=== PATIENT | male | born 1980 | race African-American/Black ===

== ENCOUNTER 2016-05-23 15:15 | Emergency (ER) | payer SELFPAY ==
[~2016-05-23] VITALS: Ht 185.4 cm; Wt 71.3 kg
[2016-05-23 15:18] VITALS: BP 160/116; PULSE 75; RESP 18; TEMP 99.3; O2SAT 99
[2016-05-23] MEDS ORDERED: SODIUM CHLOR 0.9% 1000 ML INJ 1,000 ML IV SCH (16:07)
--- NOTE | 2016-05-23 16:12 | PD ---
HPI Chief Complaint: GI Complaint Time Seen by Provider: 16:02 Travel History International Travel<30 days: No Contact w/Intl Traveler<30days: No Traveled to known affect area: No History of Present Illness HPI She is a 35-year-old male who presents to emergency room with complaints of nausea and vomiting for the past few days. Patient reports that he has been doing to stay hydrated, reports that he has not been able to eat or drink anything since . Patient reports no sick contacts. Patient reports no abdominal pain. Patient reports nausea and vomiting. Patient denies constipation or diarrhea. Patient with no chest pain or shortness of breath. Patient with no other complaints. Patient denies any recent travels or trips. Patient denies eating anything which would've caused these symptoms. [facility] Family History Family History: Negative Social History Alcohol Use: Yes Tobacco Use: Yes Substance Use: Yes (MARIJUANA) Allergies-Medications (Allergen,Severity, Reaction): Coded Allergies: No Known Allergies (Unverified , 05/23/16) Reported Meds & Prescriptions Reported Meds & Active Scripts Active Macrobid (Nitrofurantoin Monoh/Nitrofur Macro) 100 Mg Cap 100 Mg PO BID 10 Days Bentyl (Dicyclomine HCl) 20 Mg Tab 20 Mg PO TID 10 Days Zofran Odt (Ondansetron Odt) 4 Mg Tab 4 Mg SL Q6HR PRN Review of Systems General / Constitutional: No: Fever Eyes: No: Visual changes HENT: No: Headaches Cardiovascular: No: Chest Pain or Discomfort Respiratory: No: Shortness of Breath Gastrointestinal: Positive: Nausea, Vomiting, No: Diarrhea, Abdominal Pain, Constipation Genitourinary: No: Dysuria Musculoskeletal: No: Pain Skin: No Rash Neurologic: No: Weakness Psychiatric: No: Depression Endocrine: No: Polydipsia Hematologic/Lymphatic: No: Easy Bruising Physical Exam Narrative GENERAL: No acute distress, nontoxic SKIN: Warm and dry. HEAD: Atraumatic. Normocephalic. EYES: Pupils equal and round. No scleral icterus. No injection or drainage. ENT: No nasal bleeding or discharge. Mucous membranes pink and tacky. NECK: Trachea midline. No JVD. CARDIOVASCULAR: Regular rate and rhythm. No murmur appreciated. RESPIRATORY: No accessory muscle use. Clear to auscultation. Breath sounds equal bilaterally. GASTROINTESTINAL: Abdomen soft, non-tender, nondistended. Hepatic and splenic margins not palpable. MUSCULOSKELETAL: No obvious deformities. No clubbing. No cyanosis. No edema. NEUROLOGICAL: Awake and alert. No obvious cranial nerve deficits. Motor grossly within normal limits. Normal speech. PSYCHIATRIC: Appropriate mood and affect; insight and judgment normal. Data Data Last Documented VS Orders Complete Blood Count With Diff (05/23/16 16:07) Comprehensive Metabolic Panel (05/23/16 16:07) Lipase (05/23/16 16:07) Urinalysis - C+S If Indicated (05/23/16 16:07) Iv Access Insert/Monitor (05/23/16 16:07) Ondansetron Inj (Zofran Inj) (05/23/16 16:15) Sodium Chlor 0.9% 1000 Ml Inj (Ns 1000 M (05/23/16 16:07) Sodium Chloride 0.9% Flush (Ns Flush) (05/23/16 16:15) Famotidine Inj (Pepcid Inj) (05/23/16 16:15) Dicyclomine (Bentyl) (05/23/16 16:15) Sodium Chlor 0.9% 1000 Ml Inj (Ns 1000 M (05/23/16 16:15) Ct Abd/Pel W Iv Contrast(Rout) (05/23/16 17:09) Urine Culture (05/23/16 17:10) Iohexol 350 Inj (Omnipaque 350 Inj) (05/23/16 17:48) Ceftriaxone Inj (Rocephin Inj) (05/23/16 18:45) Gc And Chlamydia Pcr (05/23/16 18:41) Labs MDM Medical Decision Making Medical Screen Exam Complete: Yes Emergency Medical Condition: Yes Interpretation(s) Vital Signs Date Time Temp Pulse Resp B/P Pulse Ox O2 Delivery O2 Flow Rate FiO2 05/23/16 15:18 99.3 75 18 160/116 99 Differential Diagnosis Gastroenteritis, gastritis, electrolyte abnormality, ulcer Narrative Course Patient is a 35-year-old male who presents to emergency room with complaints of nausea and vomiting for the past few days. Patient reports that he has been symptomatic and has not been able to keep any fluids down since . Patient with no fevers or chills. Patient denies constipation or diarrhea. Patient reports that he just feels very dehydrated. Patient nontoxic on evaluation, patient does appear dehydrated. Plan to place IV, will give IV fluids, Bentyl and Zofran. Will check CBC, BMP, LFTs and perform serial abdominal evaluations. Patient was reevaluated, patient reports he started feeling mildly better. WBC 18.7 Hemoglobin 16.1 Hematocrit 48 Platelets 251 Neutrophil percent 75.1 Sodium 140 Potassium 3.6 Carbon dioxide 23.9 BUN 14 Creatinine 1.10 Lipase 626 Patient reports that he is feeling mildly better, reviewed concerning labs with patient as well as concerning lipase. Patient reports that he only drinks alcohol on occasion, does not drink alcohol every single day. Patient with no history of pancreatitis in the past. Plan to obtain CT of the abdomen for further evaluation of pancreas UA: pos for trace blood and few wbc, will treat for uti urine g/c sent ct abd/pelvis: neg for acute pathology, liver, spleen and pancreas and adrenals are unremarkable Patient was given a copy of his CAT scan reports for follow-up Signs and symptoms of when to return to the emergency room reviewed with patient and his in detail. Patient will follow up with cultures from today. Abdomen is soft, nontender, nondistended, no peritoneal signs on discharge. Diagnosis Primary Impression: Pancreatitis Qualified Code: K85.90 - Acute pancreatitis without infection or necrosis, unspecified pancreatitis type Additional Impressions: Nausea & vomiting Qualified Code: R11.2 - Nausea and vomiting, intractability of vomiting not specified, unspecified vomiting type Leukocytosis Qualified Code: D72.829 - Leukocytosis, unspecified type UTI (urinary tract infection) Qualified Code: N30.01 - Acute cystitis with hematuria Patient Instructions: General Instructions Additional Instructions: Please follow-up with all cultures from today Please follow-up with your primary care doctor as soon as possible Return to ER as needed Please bring her CAT scan report to doctor's office for follow-up on studies from today. Please make that he drink plenty of fluids Med/Other Pt SpecificInfo: Prescription(s) given Scripts Nitrofurantoin Monohydrate Macrocrystals (Macrobid)100 Mg [id number] Mg PO BID 10 Days Ref 0 Prov:Nona Amezcua DO 05/23/16 Dicyclomine (Bentyl)20 Mg Tab20 Mg PO TID 10 Days Ref 0 Prov:Nona Amezcua DO 05/23/16 Ondansetron Odt (Zofran Odt)4 Mg Tab4 Mg SL Q6HR PRN (Nausea/Vomiting) #30 TAB Ref 0 Prov:Nona Amezcua DO 05/23/16 Disposition: 01 DISCHARGE HOME Condition: Stable Nona Amezcua DO May 23, 2016 16:12 Urine Specific [place] 1.034 Urine Protein 100 mg/dL Urine Glucose (UA) NEG mg/dL Urine Ketones 40 mg/dL Urine Occult Blood TRACE Urine Nitrite NEG Urine Bilirubin NEG Urine Leukocyte Esterase NEG Urine RBC 0-3 /hpf Urine WBC 9-14 /hpf Urine WBC Clumps FEW Urine Squamous Epithelial > 8 /hpf Cells Urine Amorphous Sediment MOD Microscopic Urinalysis Comment CULTURE INDICATED Urine Collection Time [facility] [facility] Medical Decision Making Medical Screen Exam Complete: Yes Interpretation(s) Vital Signs Date Time Temp Pulse Resp B/P Pulse Ox O2 Delivery O2 Flow Rate FiO2 05/23/16 15:18 99.3 75 18 160/116 99 Differential Diagnosis Gastroenteritis, gastritis, electrolyte abnormality, ulcer Narrative Course Patient is a 35-year-old male who presents to emergency room with complaints of nausea and vomiting for the past few days. Patient reports that he has been symptomatic and has not been able to keep any fluids down since . Patient with no fevers or chills. Patient denies constipation or diarrhea. Patient reports that he just feels very dehydrated. Patient nontoxic on evaluation, patient does appear dehydrated. Plan to place IV, will give IV fluids, Bentyl and Zofran. Will check CBC, BMP, LFTs and perform serial abdominal evaluations. Patient was reevaluated, patient reports he started feeling mildly better. WBC 18.7 Hemoglobin 16.1 Hematocrit 48 Platelets 251 Neutrophil percent 75.1 Sodium 140 Potassium 3.6 Carbon dioxide 23.9 BUN 14 Creatinine 1.10 Lipase 626 Patient reports that he is feeling mildly better, reviewed concerning labs with patient as well as concerning lipase. Patient reports that he only drinks alcohol on occasion, does not drink alcohol every single day. Patient with no history of pancreatitis in the past. Plan to obtain CT of the abdomen for further evaluation of pancreas UA: pos for trace blood and few wbc, will treat for uti urine g/c sent ct abd/pelvis: neg for acute pathology, liver, spleen and pancreas and adrenals are unremarkable Patient was given a copy of his CAT scan reports for follow-up Signs and symptoms of when to return to the emergency room reviewed with patient and his in detail. Patient will follow up with cultures from today. Abdomen is soft, nontender, nondistended, no peritoneal signs on discharge. Diagnosis Primary Impression: Pancreatitis Qualified Code: K85.90 - Acute pancreatitis without infection or necrosis, unspecified pancreatitis type Additional Impressions: Nausea & vomiting Qualified Code: R11.2 - Nausea and vomiting, intractability of vomiting not specified, unspecified vomiting type Leukocytosis Qualified Code: D72.829 - Leukocytosis, unspecified type UTI (urinary tract infection) Qualified Code: N30.01 - Acute cystitis with hematuria Patient Instructions: General Instructions Additional Instructions: Please follow-up with all cultures from today Please follow-up with your primary care doctor as soon as possible Return to ER as needed Please bring her CAT scan report to doctor's office for follow-up on studies from today. Please make that he drink plenty of fluids Med/Other Pt SpecificInfo: Prescription(s) given Scripts Nitrofurantoin Monohydrate Macrocrystals (Macrobid)100 Mg [id number] Mg PO BID 10 Days Ref 0 Prov:Nona Amezcua DO 05/23/16 Dicyclomine (Bentyl)20 Mg Tab20 Mg PO TID 10 Days Ref 0 Prov:Nona Amezcua DO 05/23/16 Ondansetron Odt (Zofran Odt)4 Mg Tab4 Mg SL Q6HR PRN (Nausea/Vomiting) #30 TAB Ref 0 Prov:Nona Amezcua DO 05/23/16 Disposition: 01 DISCHARGE HOME Condition: Stable Nona Amezcua DO May 23, 2016 16:12
[2016-05-23] MEDS ORDERED: FAMOTIDINE 20 MG/2 ML VIAL IV PUSH ONE (16:15)
[2016-05-23] MEDS ORDERED: DICYCLOMINE HCL 10 MG CAP PO ONE (16:15)
[2016-05-23] MEDS ORDERED: ONDANSETRON HCL 4 MG/2 ML VIAL IVP ONE (16:15)
[2016-05-23] MEDS ORDERED: SODIUM CHLOR 0.9% 1000 ML INJ 1,000 ML IV ONE (16:15)
[2016-05-23] MEDS ORDERED: SODIUM CHLORIDE 0.9% FLUSH 5 ML FLUSH IVF PRN (16:15)
[2016-05-23 16:23] LABS: AUTOMATED NEUTROPHIL # 14.1 TH/MM3 (1.8-7.7); BASOPHIL # 0.5 TH/MM3 (0-0.2); BASOPHIL % 2.6 % (0.0-2.0); EOSINOPHIL % 0.1 % (0.0-4.0); HEMO FLAGS AUTO DIFF; LYMPH % 10.2 % (9.0-44.0); LYMPHOCYTE # 1.9 TH/MM3 (1.0-4.8); MEAN CELL VOLUME 82.1 FL (80.0-100.0); MEAN CORPUSCULAR HEMOGLOBIN 27.5 PG (27.0-34.0); MEAN CORPUSCULAR HGB CONC 33.5 % (32.0-36.0); NEUT % 75.1 % (16.0-70.0); PLATELET COUNT 251 TH/MM3 (150-450); RED BLOOD COUNT 5.84 MIL/MM3 (4.50-5.90); RED CELL DISTRIBUTION WIDTH 13.2 % (11.6-17.2); WHITE BLOOD COUNT 18.7 TH/MM3 (4.0-11.0)
[2016-05-23 16:24] VITALS: BP 167/111; PULSE 66; RESP 20; O2SAT 99
[2016-05-23 16:30] LABS: CHLORIDE 104 MEQ/L (98-107); POTASSIUM 3.6 MEQ/L (3.5-5.1); SODIUM (NA) 140 MEQ/L (136-145)
[2016-05-23 16:34] LABS: ANION GAP 12 MEQ/L (5-15); BICARBONATE 23.9 MEQ/L (21.0-32.0); BLOOD UREA NITROGEN 14 MG/DL (7-18)
[2016-05-23 16:37] LABS: ALT (GPT) 16 U/L (12-78); AST (GOT) 22 U/L (15-37); GLOMERULAR FILTRATION RATE 92 ML/MIN (>89)
[2016-05-23 16:39] LABS: TOTAL BILIRUBIN ADULT 0.3 MG/DL (0.2-1.0)
[2016-05-23 16:40] LABS: ALKALINE PHOSPHATASE 49 U/L (45-117)
[2016-05-23 16:47] LABS: SCAN/DIFF AUTO DIFF CONFIRMED
[2016-05-23 17:13] VITALS: BP 155/107; PULSE 86; RESP 18; O2SAT 97
[2016-05-23 17:23] LABS: BLOOD, URINE TRACE (NEG); GLUCOSE,URINE NEG (NEG); KETONE, URINE 40 mg/dL (NEG); NITRITE,URINE NEG (NEG)
[2016-05-23 17:32] LABS: METHOD OF COLLECTION CLEAN CATCH; URINE COLOR YELLOW (YELLW/STRAW)
[2016-05-23 17:33] LABS: RBC, URINE 0-3 /hpf (0-3)
[2016-05-23 17:34] LABS: COMMENT (UR) CULTURE INDICATED; COMMENT2 (UR) MUCOUS PRESENT; CULTURE IF INDICATED CULTURE INDICATED; SQUAMOUS EPITHELIAL CELL URINE > 8 /hpf (0-5)
[2016-05-23] MEDS ORDERED: IOHEXOL 350 MG/ML 10 ML VIAL (for RAD DIAG) IV ONE (17:48)
[2016-05-23 18:21] VITALS: BP 143/99; PULSE 89; RESP 18; O2SAT 98
--- NOTE | 2016-05-23 18:23 | RADHPO ---
EXAM DATE/TIME: 05/23/2016 17:40 [facility] COMPARISON: No previous studies available for comparison. INDICATIONS : Nausea and vomiting for three days. IV CONTRAST: 70 cc Omnipaque 350 (iohexol) IV ORAL CONTRAST: No oral contrast ingested. RADIATION DOSE: 6.26 CTDIvol (mGy) MEDICAL HISTORY : None SURGICAL HISTORY : None. ENCOUNTER: Initial ACUITY: 3 days PAIN SCALE: 3/10 LOCATION: Bilateral lower quadrant TECHNIQUE: Volumetric scanning of the abdomen and pelvis was performed. Using automated exposure control and ad justment of the mA and/or kV according to patient size, radiation dose was kept as low as reasonably achievable to obtain optimal diagnostic quality images. FINDINGS: Lung bases are clear. Liver, spleen, pancreas and adrenal glands are unremarkable. Gallbladder appe ars normal. Region of the cecum and terminal ileum are unremarkable. In the pelvis, there is no ascites or adenopathy. Abdominal wall is intact. Review of bone windows reveals only degenerative changes. CONCLUSION: Negative CT scan abdomen and pelvis. I do not see an etiology for the patient's abdominal pain, naus ea and vomiting. Juvenal Baker MD FACR on May 23, 2016 at 18:07 Board Certified Radiologist. This report was verified electronically.
[2016-05-23] MEDS ORDERED: BENT20TA PO (18:39)
[2016-05-23] MEDS ORDERED: ZOFR4TAB3 SL (18:39)
[2016-05-23] MEDS ORDERED: MACR100C2 PO (18:42)
[2016-05-23] MEDS ORDERED: cefTRIAXone INJ 1,000 MG in SODIUM CHLORIDE 0.9% INJ 100 ML IV ONE (18:45)
[2016-05-23 23:55] LABS: CHLAMYDIA PCR NOT DETECTED (NOT DETECT); NEISSERIA PCR NOT DETECTED (NOT DETECT)
== END 2016-05-23 19:54 | disposition home or self-care (01) ==
LOC: PHED 15:15
DX: K85.90 Acute pancreatitis without necrosis or infection, unspecified (principal); N39.0 Urinary tract infection, site not specified; D72.829 Elevated white blood cell count, unspecified; F10.10 Alcohol abuse, uncomplicated; F12.10 Cannabis abuse, uncomplicated; Z72.0 Tobacco use
CPT/HCPCS: 74177; 80053; 81001; 83690; 85025; 87086; 87491; 87591; 96361; 96365; 96375; 99284; J0696; J2405; J7030; Q9967